=== PATIENT | male | born 1945 | race Caucasian/White ===

== ENCOUNTER → 2021-04-25 | Outpatient (CLI) | payer BC ==
[~2021-04-25] MED LIST: BUPROPION HCL100 MG PO; COREG25 M1 PO; HYDROCHLOROTHIA25 M1 PO; NICOTINE PATCH1 EAC3 TRANSDERM
[2021-04-25 09:11] LABS: URINE BILIRUBIN NEGATIVE (Negative); URINE BLOOD TRACE (Negative); URINE CLARITY CLEAR; URINE COLOR YELLOW; URINE GLUCOSE-RANDOM* NEGATIVE (Negative); URINE KETONES NEGATIVE (Negative); URINE LEUKOCYTES-REFLEX NEGATIVE (Negative); URINE NITRITE-REFLEX NEGATIVE (Negative); URINE PROTEIN (DIPSTICK) NEGATIVE (Negative); URINE SPECIFIC GRAVITY 1.015 (1.005-1.035)
[2021-04-25 09:17] LABS: HEMATOCRIT 43.5 % (42.0-52.0); HEMOGLOBIN 15.2 gm/dL (14.0-18.0); MCV 117.4 fL (80.0-100.0); RBC 3.7 mil/uL (4.50-6.00); RDW 14.1 % (10.5-14.5); WBC 4.8 thou/uL (4.0-11.0)
[2021-04-25 09:22] LABS: ALBUMIN 3.4 g/dL (3.4-5.0); CALCIUM 8.6 mg/dL (8.5-10.1); POTASSIUM 3.7 mmol/L (3.5-5.1)
[2021-04-25 09:28] LABS: INR 0.94; PROTIME 10.3 Seconds (10.5-12.1)
--- NOTE | 2021-04-25 10:54 | EKG ---
[address] [address] ELECTROCARDIOGRAM REPORT Name: MELIZA GOETZ [facility] #: [facility] [id number] Admission: 04/25/21 Attend Phys: Lorenzo Baltazar MD Discharge: Date of : 47 Report #: [id number] [facility] Test Date: 2021-04-25 Test Time: 09:07:09 Pat Name: MELIZA GOETZ Department: Room: Gender: Respiratory Clinician: KIRAN BEAUCHAMP : 1945 Requested By: Lorenzo Baltazar Order Number: [id number] : Tho Olivas Measurements Intervals [place] Rate: 57 P: 55 MT: 161 QRS: 0 QRSD: 146 T: 36 QT: 500 QTc: 487 Interpretive Statements Sinus rhythm Atrial premature complex Right bundle branch block No previous ECG available for comparison Electronically Signed On 04-25-2021 10:53:54 CDT by Tho Olivas [email or web address] <ELECTRONICALLY SIGNED> By: Tho Olivas MD, [facility] 04/25/21 1053 0907 6 Tho Olivas MD, FACC /EPI
== END ==
LOC: PAC 05:50
PROVIDERS: ATTEND Orthopaedic Surgery
DX: Z01.818 Encounter for other preprocedural examination (principal); M16.12 Unilateral primary osteoarthritis, left hip; I45.10 Unspecified right bundle-branch block

== ENCOUNTER 2021-05-01 07:20 | Observation (INO) | payer BC ==
[~2021-05-01] VITALS: Ht 180.3 cm; Wt 75.3 kg
[2021-05-01 09:02] VITALS: BP 184/82
[2021-05-01 20:05] VITALS: BP 150/95
[2021-05-01 23:38] VITALS: BP 137/74
--- NOTE | 2021-05-02 03:30 | NUR ---
PT ARRIVED FROM SX AT 1845 A&OX4 ADIMMISION DONE AND PT ORIENTED TO THE UNIT. RT HIP DRESSING C/D/I. ICE BAG IN PLACE. PT C/O NAUSEA DURING SHIFT CHANGED BUT FLET BETTER AFTERWARDS. DENIES NEED FOR PAIN OR NAUSEA MEDICATION. IV INTACT AND FLUIDS INFUSING. URINAL BY BEDSIDE. TEDHOSE ON BLE AND SCD'S IN PLACE WILL CONT TO MONITOR TILL EOS.
[2021-05-02 08:00] VITALS: BP 123/60
--- NOTE | 2021-05-02 09:40 | NUR ---
Chart review. Visited with tiny and his son gil. He was just got finished working with OT. DME needs( fww, toilet riser, and shower chair) for dc education from OT provided. FWW will be delivered by provider plus today. He lives at home alone, no longer drives. manage own medication. 12 step in home. health about 10 years ago after cancer. Outpatient therapy set up with [facility] in [place] set up for 1st visit tomorrow, if he stays will cancel tomorrow visit per son gil. DCP fww and outpt therapy.
[2021-05-02] MEDS ORDERED: HYDROCODON-ACE1 EAC7 PO (11:53)
[2021-05-02] MEDS ORDERED: TRI-BUFFERED A325 M1 PO (11:53)
--- NOTE | 2021-05-02 11:56 | O ---
[facility] [place] [place] [place] [address] OPERATIVE REPORT Name: MELIZA GOETZ BRIMLEY Room #: 440-P [facility] MAshutosh#: [id number] Admission: 05/01/21 Attend Phys: Lorenzo Baltazar MD Discharge: Date of : 47 Report #: [id number] THIS REPORT FOR: cc: Bria Perry MD,Bria Baltazar,Lorenzo Braswell MD ~ DATE OF SERVICE: 05/01/2021 PREOPERATIVE DIAGNOSIS: Right hip stage IV avascular necrosis. POSTOPERATIVE DIAGNOSIS: Right hip stage IV avascular necrosis. PROCEDURE: Right total hip arthroplasty. SURGEON: Lorenzo Baltazar MD. GRADUATE RESEARCH ASSISTANT: Jasmyn Carney PA-C. INDICATION FOR GRADUATE RESEARCH ASSISTANT: Throughout the case, extensive retraction, manipulation of the hip including dislocation and reduction was required. This was afforded to me by my sales operations assistant. ANESTHESIA: LMA. IMPLANTS: A Villalta and Nephew size 14 high offset Synergy press-fit stem, a size 52 R3 acetabular cup with 2 acetabular screws, a size 36+4 cobalt chrome head. ESTIMATED BLOOD LOSS: 150 mL COMPLICATIONS: None. SPECIMENS: None. CONDITION UPON LEAVING THE OR: Stable. INDICATIONS FOR PROCEDURE: The patient is a 76-year-old gentleman with stage IV right hip avascular necrosis. He had failed conservative measures for this and after discussion with him, he elected for right total hip arthroplasty. DESCRIPTION OF PROCEDURE: Risks, benefits, alternatives, complications were discussed in detail with the patient including but not limited to risk of anesthesia, risk of damage to nerves, arteries, blood vessels, risk for infection, bleeding, risk for continued hip pain, leg length discrepancy, instability and need for reoperation. Informed consent was obtained from the patient. Right hip was appropriately marked in the preoperative holding area. IV Ancef was given for preoperative antibiotics. He was brought to the [facility] [address] [place] [address] OPERATIVE REPORT Name: MELIZA GOTEZ RAY Room #: 440-P [facility] Thomas Gonzalez#: [id number] Admission: 05/01/21 Attend Phys: Lorenzo Baltazar MD Discharge: Date of : 47 Report #: [id number] operating room and placed in the supine position on the operating room table. LMA anesthesia was induced without complication. He was placed in the left lateral decubitus position with the right hip uppermost. Right hip and lower extremity were prepped and draped in normal sterile fashion. Timeout was performed, properly identifying the patient, procedure as well as the instrumentation and implants. All in the operating room were in agreement. Standard posterior approach to the hip was made with 10 blade through the skin. Dissection was taken down to the fascia with Bovie cautery and Liz elevator was used to clean the fascia. Fresh 10 blade was used to make a fascial incision. This was taken proximally and distally with curved Diaz scissors. Charnley retractor was placed. Trochanteric bursa was taken down with Bovie cautery. Piriformis tendon was identified, tagged and taken down with Bovie. Short external rotators were also taken down with Bovie cautery. Capsulotomy was made and capsule ends were tagged for later repair. Hip was dislocated and there was extensive avascular necrosis of the femoral head with collapse of the femoral head. Femoral neck cut was made 1 cm proximal to the lesser trochanter based on preoperative templating and the femoral head was removed. Deep acetabular retractors were placed. Labrum was removed sharply. Pulvinar was removed with Bovie cautery. Acetabulum was then sequentially reamed up to a size 52, at which point there was excellent bleeding cancellous bone. A size 51 trial cup was placed, found to have a good fit. Final size 52 R3 acetabular cup was placed and seated. One acetabular screw was placed for backup fixation and a polyethylene liner for a size 36 head was placed. Attention was turned to the femur. This was reamed and broached up to a size 14, at which point the size 14 broach was stable, and was trialed with a high offset neck and a 36+0 head. Hip was reduced, taken through range of motion, found to be stable, found to be somewhat short on the right compared to left. It was felt we can make up for this with the final implant. The hip was dislocated. Broach was removed. The final size 14 high offset Synergy cemented stem was cemented in place using standard cementation techniques. After the cement cured, this was trialed with 36+4 head. Hip was reduced, taken through range of motion, found to be stable, found to have equal leg lengths. Hip was dislocated one last time. A final size 36+4 cobalt chrome head was placed. Hip was reduced, taken through range of motion, found to be stable, found to have equal leg lengths. Wound was thoroughly irrigated with normal saline. A periarticular injection consisting of morphine, ropivacaine, epinephrine, Toradol was placed around the hip joint capsule. Then, 1 gram of vancomycin was placed deep in the joint. The capsule and piriformis were repaired with 0 FiberWire. Fascia was closed with 0 Vicryl. Skin was closed with 2-0 Vicryl, skin staple and a KECIA dressing was applied. The patient tolerated this procedure well and went to recovery room under care of Anesthesia postoperatively. <ELECTRONICALLY SIGNED> By: Lorenzo Baltazar MD 05/02/21 1156 1125 1148 Lorenzo Baltazar MD /nt
[2021-05-02 12:34] VITALS: BP 137/74
== END 2021-05-02 14:21 | disposition home or self-care (01) ==
LOC: PRE → OR 07:20 → PRE 07:44 → TBA 08:42 → PRE 09:20 → TBA 11:42 → PRE 11:49 → TBA 12:06 → PRE 12:29 → EDSTATUS 15:29 → PRE 15:41 → OR 16:12 → PRE 16:28 → 4S 18:41 → OR 18:42 → 4S 05-02 14:21
PROVIDERS: ADMIT Orthopaedic Surgery; ATTEND Orthopaedic Surgery
DX: M87.851 Other osteonecrosis, right femur (principal); M16.12 Unilateral primary osteoarthritis, left hip; E78.5 Hyperlipidemia, unspecified; F17.210 Nicotine dependence, cigarettes, uncomplicated; Z79.899 Other long term (current) drug therapy; Z23 Encounter for immunization; Z20.822 Contact with and (suspected) exposure to COVID-19
CPT/HCPCS: 10102; 50101; 50382; 50414; 51057; 51130; 51225; 51226; 51412; 53000; 53078; 53367; 54118; 56524; 56527; 56528; 56530; 57095; 57103; 57978; 62110; 62900; 70005

== ENCOUNTER 2021-05-03 07:29 | Observation (INO) | payer BC ==
[~2021-05-03] VITALS: Ht 180.3 cm; Wt 68.0 kg
[~2021-05-03 07:29] MED LIST changes: +HYDROCODON-ACE1 EAC7 PO; +TRI-BUFFERED A325 M1 PO
[2021-05-03 07:33] VITALS: BP 146/85
[2021-05-03 09:42] LABS: ABSOLUTE NEUTROPHILS 4.3 thou/uL (1.4-8.2); BASOPHILS 0.5 % (0.0-2.0); EOSINOPHILS 0.3 % (0.0-3.0); HEMATOCRIT 39.3 % (42.0-52.0); HEMOGLOBIN 13.6 gm/dL (14.0-18.0); LYMPHOCYTES 13.3 % (24.0-44.0); MCH 40.1 pg (26.0-34.0); MCHC 34.6 g/dL (28.0-37.0); MCV 116.1 fL (80.0-100.0); MONOCYTES 7.9 % (1.0-8.0); PLATELET COUNT 228 thou/uL (150-400); RBC 3.38 mil/uL (4.50-6.00); RDW 13.8 % (10.5-14.5); WBC 5.6 thou/uL (4.0-11.0)
[2021-05-03 09:44] LABS: CALCIUM 8.2 mg/dL (8.5-10.1); CREATININE 0.8 mg/dL (0.7-1.3)
[2021-05-03 09:45] LABS: POTASSIUM 3.9 mmol/L (3.5-5.1)
[2021-05-03 09:50] LABS: ALBUMIN 2.8 g/dL (3.4-5.0); TOTAL BILIRUBIN 0.8 mg/dL (0.2-1.0); TOTAL PROTEIN 6.1 g/dL (6.4-8.2)
[2021-05-03 10:30] LABS: MACROCYTES 2+; PLATELET ESTIMATE NORMAL
[2021-05-03 11:00] VITALS: BP 144/74
[2021-05-03 15:17] VITALS: BP 149/84
[2021-05-03 16:33] VITALS: BP 152/82
--- NOTE | 2021-05-03 16:43 | NUR ---
ASSUMED PT CARE FROM PACU AT 1500. PT IS ALERT & ORIENTED X4. PT HAS IV SITE ON R WRIST 20 GAUGE RUNNING D5 1/2 NS @ 100ML/HR. PT HAD OPEN REDUCTION DISLOCATION SURGERY ON R HIP TODAY. FINISHED ADMISSION TODAY. PT HAS KECIA DRESSING ON R HIP, ABDUCTOR PILLOW BETWEEN LEGS, MATILDA HOSE ON L KNEE HIGH, AND SCD. PT IS ON ROOM AIR. PT RATED PAIN 2/10 ON R HIP. PT HAS COLOSTOMY. PT SON WAS AT THE BEDSIDE. PT ON THE BED WATCHING TV, BED ON THE LOWEST POSITION, SIDE RAILS UP, CALL LIGHT WITHIN REACH. FOLLOW POC.
--- NOTE | 2021-05-03 17:07 | NUR ---
Chart reviewed and pt known to cm from discharge home with outpt therapy and FWW yesterday. Pt is s/p MOISES on 05/01;however after he went home yesterday he was up to the bathroom without his walker and fell. He is s/p open reduction today. Consult rec'd for hh vs snf referrals. Therapy evals are pending. Will need to check ins benefits if snf or rehab needed as pt has a [employer] plan primary and possible medicare secondary. The pt lives at home with his son and has 12 steps into the home. He is normally indep with gait, adl's, and med mngt. His pcp is Dr. Bria Perry. Will visit with the pt once therapy imput rec'd.
[2021-05-03 19:38] VITALS: BP 120/68
--- NOTE | 2021-05-04 02:33 | NUR ---
PT IS A/O X4 AND IS ON BEDREST. PT IS COOPERATIVE BUT IRRITABLE WITH ALL CARES. VSS. AFEBRILE. DENIES C/O PAIN OR DISCOMFORT. MEDICATIONS GIVEN PER MAR. ABDUCTOR PILLOW IN PLACE. DRSG TO HIP IS C/D/I. PT VOIDS PER URINAL AND HAS A COLOSTOMY IN PLACE. MAINTANCE FLUID INFUSING AT PRESCRIBED RATE. FALL PRECAUTIONS IN PLACE, CALL LIGHT IS WITHIN REACH. PT CALLS OUT APPROPRIATELY FOR ASSISTANCE.
[2021-05-04 05:23] VITALS: BP 123/72
--- NOTE | 2021-05-04 07:22 | EKG ---
[address] [address] ELECTROCARDIOGRAM REPORT Name: MELIZA GOETZ Room #: 439-P [facility] M.R.#: [id number] Admission: 05/03/21 Attend Phys: Lorenzo Baltazar MD Discharge: Date of : 47 Report #: [id number] [facility] ED Test Date: 2021-05-03 Test Time: 09:53:51 Pat Name: MELIZA GOETZ Department: Room: 439 Gender: M Certified Professional Controller: KHURRAM : 1945 Requested By: Justin Baxter Order Number: [id number] MD: Tho Olivas Measurements Intervals [place] Rate: 145 P: 89 NE: 58 QRS: 0 QRSD: 206 T: 5 QT: 442 QTc: 687 Interpretive Statements Sinus tachycardia Right bundle branch block Compared to ECG 04/25/2021 09:07:09 Sinus rhythm no longer present Atrial premature complex(es) no longer present Electronically Signed On 05-04-2021 7:22:31 CDT by Tho Olivas [email or web address] <ELECTRONICALLY SIGNED> By: Tho Olivas MD, [facility] 05/04/21721 Tho Olivas MD, [facility] /EPI
[2021-05-04 08:18] VITALS: BP 146/76
[2021-05-04 09:50] VITALS: BP 146/76
--- NOTE | 2021-05-04 15:01 | NUR ---
Pt seen by therapy and ortho this am. He was cleared for dc to home with previous plans of starting outpt [facility]arpy at [facility]. No cm interventions. Pt has rwalker in place.
--- NOTE | 2021-05-09 09:39 | O ---
[facility] [place] [address] OPERATIVE REPORT Name: MELIZA GOETZ Room #: 439-P [facility] Thomas Gonzalez#: [id number] Admission: 05/03/21 Attend Phys: Lorenzo Baltazar MD Discharge: 05/04/21 Date of : 47 Report #: [id number] THIS REPORT FOR: cc: Bria Perry MD,Bria Baltazar,Lorenzo Braswell MD ~ DATE OF SERVICE: 05/03/2021 PREOPERATIVE DIAGNOSIS: Right total hip arthroplasty dislocation. POSTOPERATIVE DIAGNOSIS: Right total hip arthroplasty dislocation. PROCEDURE: Open reduction, right total hip arthroplasty. SURGEON: Lorenzo Baltazar MD. EDUCATION DEPARTMENT REGISTRAR: Jasmyn Carney PA-C. ANESTHESIA: LMA. COMPLICATIONS: None. SPECIMENS: None. ESTIMATED BLOOD LOSS: 10 mL CONDITION UPON LEAVING THE OR: Stable. INDICATIONS FOR PROCEDURE: The patient is a 76-year-old gentleman who is 2 days out from a right total hip arthroplasty. He was discharged home from the hospital yesterday and unfortunately during the night, he got up to go to the bathroom and was ambulating without his walker and fell and had immediate hip pain. He came to the Emergency Room and was found to have a dislocation of his right total hip arthroplasty. After discussion with him and his family, he elected for closed versus open reduction of his right total hip arthroplasty. DESCRIPTION OF PROCEDURE: Risks, benefits, alternatives, complications were discussed in detail with the patient and the patient's family including but not limited to risk of anesthesia, risk of damage to nerves, arteries, blood vessels, risk of failure of closed reduction and need for open reduction. Informed consent was obtained from the patient. The right hip was appropriately marked in the preoperative holding area. He was brought to the operating room and placed in the supine position on the operating room table. LMA anesthesia was induced without complication. Multiple attempts at closed reduction were performed and were unsuccessful and verified to be unsuccessful under fluoroscopic imaging. It was decided at this point that an open reduction would [address] [address] OPERATIVE REPORT Name: MELIZA GOETZ Room #: 439-P [facility] Thomas Gonzalez#: [id number] Admission: 05/03/21 Attend Phys: Lorenzo Baltazar MD Discharge: 05/04/21 Date of : 47 Report #: [id number] be required. Previous edmund were removed from his incision. Incision was opened with a 10 blade. Fascial closure was opened with a 10 blade and there was an obvious posterior superior dislocation of the femoral head prosthesis. There was a large amount of hematoma within the acetabular polyethylene. This was evacuated and the hip was then reduced manually and shown to have good stability and equal leg lengths. The wound was thoroughly irrigated with normal saline. Capsule was repaired with 0 FiberWire. Fascia was closed with 0 Vicryl. Skin was closed with 2-0 Vicryl, skin staple and a KECIA dressing was applied. Abduction pillow was applied. The patient tolerated this procedure well and went to the recovery room under care of anesthesia postoperatively. <ELECTRONICALLY SIGNED> By: Lorenzo Baltazar MD 05/09/21 0939 1256 1320 Lorenzo Baltazar MD /nt
== END 2021-05-04 10:33 | disposition home or self-care (01) ==
LOC: ER 07:29 → EROBS 11:07 → 4S 11:07 → TBA 11:08 → 4S 14:36
PROVIDERS: Emergency Medicine; ADMIT Orthopaedic Surgery; ATTEND Orthopaedic Surgery
DX: S73.004A Unspecified dislocation of right hip, initial encounter (principal); Z20.822 Contact with and (suspected) exposure to COVID-19; F17.200 Nicotine dependence, unspecified, uncomplicated; X58.XXXA Exposure to other specified factors, initial encounter; Y93.89 Activity, other specified; Y92.89 Other specified places as the place of occurrence of the external cause; Y99.8 Other external cause status; Z85.038 Personal history of other malignant neoplasm of large intestine; Z98.890 Other specified postprocedural states
CPT/HCPCS: 10195; 50010; 50101; 50382; 50414; 51412; 53078; 56524; 56528; 57095; 57103; 57116; 62110; 62900; 70005

== ENCOUNTER 2021-06-05 19:11 | Emergency (ER) | payer BC ==
[~2021-06-05] VITALS: Ht 180.3 cm; Wt 68.0 kg
[2021-06-05 22:37] VITALS: BP 141/82
== END 2021-06-05 22:41 | disposition home or self-care (01) ==
LOC: ER 19:11
DX: S73.014A Posterior dislocation of right hip, initial encounter (principal); W18.11XA Fall from or off toilet without subsequent striking against object, initial encounter; Y93.89 Activity, other specified; Y92.89 Other specified places as the place of occurrence of the external cause; Y99.8 Other external cause status

== ENCOUNTER 2021-06-11 12:19 | Inpatient (IN) | payer OTHER ==
[~2021-06-11] VITALS: Ht 180.3 cm; Wt 73.9 kg
--- NOTE | ~2021-06-11 | O ---
[facility] [place] [address] OPERATIVE REPORT Name: MELIZA GOETZ Room #: 437-P [facility] M.R.#: [id number] Admission: 06/11/21 Attend Phys: Janell Bañuelos Discharge: Date of : 47 Report #: [id number] THIS REPORT FOR: cc: Bria Perry MD, Pamela MD Abraham,Lorenzo Braswell MD ~ DATE OF SERVICE: 06/12/2021 PREOPERATIVE DIAGNOSIS: Recurrent right hip dislocation. POSTOPERATIVE DIAGNOSES: 1. Recurrent right hip dislocation. 2. Loose unstable femoral stem, right total hip. PROCEDURE: Revision right total hip arthroplasty including the stem as well as the head and acetabular liner. SURGEON: Lorenzo Baltazar MD BREAD JOCKEY: None. ANESTHESIA: LMA. SPECIMENS: None. IMPLANTS: Villalta and Nephew size 15 high offset Synergy cemented stem with a size 40 x 52 Oxinium liner, a size 22 x 40 polyethylene insert with a size 22+8 Oxinium head. ESTIMATED BLOOD LOSS: 200 mL. COMPLICATIONS: None. SPECIMENS: None. CONDITION UPON LEAVING THE OR: Stable. INDICATIONS FOR PROCEDURE: The patient is a 76-year-old gentleman who is about 6 weeks out from a right total hip arthroplasty. He has had now 3 dislocations of his right total hip arthroplasty, presented to the Emergency Room with again a right posterior superior hip dislocation. This was not reducible in the Emergency Room and after discussion with he and his family, he elected for closed reduction versus open reduction and revision right total hip arthroplasty if necessary. DESCRIPTION OF PROCEDURE: Risks, benefits, alternatives, complications were [facility] [address] [place] [address] OPERATIVE REPORT Name: MELIZA GOETZ Room #: 437-P ADM IN M.R.#: [id number] Admission: 06/11/21 Attend Phys: Janell Bañuelos Discharge: Date of : 47 Report #: [id number] discussed in detail with the patient including but not limited to risk of anesthesia, risk of damage to nerves, arteries, blood vessels, risk for infection, bleeding, risk for continued hip pain, leg length discrepancy, instability, infection, need for reoperation. Informed consent was obtained from the patient. The right hip was appropriately marked in the preoperative holding area. IV Ancef was given for preoperative antibiotics. He was brought to the operating room and placed in the supine position on the operating room table. LMA anesthesia was induced without complication. He was then placed in the left lateral decubitus position with the right hip uppermost. Right hip and lower extremity were prepped and draped in normal sterile fashion. Timeout was performed properly identifying the patient and procedure as well as the instrumentation and implants. All in the operating room were in agreement. The previous scar was used. This was opened with a 10 blade. Dissection was taken down to the fascia with Bovie cautery and Liz elevator was used to clean the fascia. Fresh fascial incision was made. Upon entering the subfascial space, there was a large seroma that was evacuated. There was obvious dislocation of the femoral head and component. The femoral head was removed and the stem was then inspected and it was noted to be unstable in the cement mantle. This was then backed out with a slap hammer and it came out rather easily with no cement interdigitation onto the stem. At this point, it was felt that that was contributing to his posterior dislocation and the cement mantle was removed with a combination of flexible and rigid osteotomes. After this, the femur was reamed up to a size 15 and then broached up to a size 15. It was also decided given his recurrent dislocation, we would use a dual mobility construct for his femoral head. The acetabular liner was removed from the acetabular shell and a trial acetabular liner for dual mobility head was placed. This was then trialed with a size 40+8 head. Hip was reduced, taken through range of motion, found to be stable, found to be long on the right compared to the left, but it was felt that this was acceptable given his recurrent dislocation status and the need for stability of the joint. The hip was dislocated. The broach was removed and final size 15 high offset Synergy cemented stem was cemented in place using standard cementation techniques. After the cement cured, this was trialed with a 40+4 and then a 40+8 head. The 40+8 head demonstrated the best stability with increased leg length on the right compared to left, but again this was acceptable given his recurrent dislocation pattern. Hip was dislocated. The final Oxinium liner was placed in the acetabular shell. The size 22 x 40 insert with a 22+8 Oxinium head was placed for the dual mobility femoral head and the hip was reduced, taken through range of motion, found to be stable. The hip was thoroughly irrigated with normal saline. A gram of vancomycin was placed deep in the joint. The fascia was closed with 0 Vicryl. Skin was closed with 2-0 Vicryl, skin staple and a KECIA dressing was applied. The patient tolerated this [facility] [address] [place] [address] OPERATIVE REPORT Name: MELIZA GOETZ Room #: 437-P [facility] IN M.R.#: [id number] Admission: 06/11/21 Attend Phys: Janell Bañuelos Discharge: Date of : 47 Report #: [id number] procedure well and went to the recovery room under the care of anesthesia postoperatively. By: 1402 1515 Lorenzo Baltazar MD /nt
[2021-06-11 12:20] VITALS: BP 145/72
[2021-06-11 14:22] LABS: HEMATOCRIT 37.5 % (42.0-52.0); HEMOGLOBIN 12.9 gm/dL (14.0-18.0); MCH 39.5 pg (26.0-34.0); MCHC 34.4 g/dL (28.0-37.0); RBC 3.26 mil/uL (4.50-6.00); RDW 15.2 % (10.5-14.5); WBC 4.9 thou/uL (4.0-11.0)
[2021-06-11 14:38] LABS: CALCIUM 8.6 mg/dL (8.5-10.1); CREATININE 0.8 mg/dL (0.7-1.3); POTASSIUM 3.3 mmol/L (3.5-5.1)
[2021-06-11 14:45] LABS: ALBUMIN 2.7 g/dL (3.4-5.0); TOTAL BILIRUBIN 0.5 mg/dL (0.2-1.0); TOTAL PROTEIN 5.9 g/dL (6.4-8.2)
[2021-06-11 15:12] VITALS: BP 163/81
[2021-06-11 15:22] VITALS: BP 145/73
--- NOTE | 2021-06-11 15:56 | NUR ---
PT BROUGHT UP FROM ER AT 1540 THIS AFTERNOON. PT HAS DISLOCATED RT HIP AND WILL NOT STAY IN PLACE. PT WILL BE HAVING SURGERY TOMORROW AND WILL BE NPO AFTER MIDNIGHT. PT IS A/OX4 AND IS NOT COMPLAINING OF ANY PAIN AT THIS TIME. RN WILL BE ASSESSING PT AND PUTTING TOGETHER PLAN OF CARE. ORDERS HAVE BEEN ACKNOWLEDGED AND DIET ORDERS HAVE BEEN PLACED. CALL LIGHT AND OTHER NEEDS ARE IN REACH. FALL PRECAUTIONS ARE IN PLACE, MEDS AND TX GIVEN NEEDED AND SCHEDULED. WILL MONITOR AND NOTE ANY CHANGES.
[2021-06-11 16:29] VITALS: BP 151/80
[2021-06-11 19:19] VITALS: BP 110/62
--- NOTE | 2021-06-12 03:42 | NUR ---
ASSUMED CARE OF PT AT 1900. BEDSIDE REPORT RECIEVED. TOMI ASSESSMENT COMPLETE. PT C/O 11/28 HIP PAIN. MEDS GIVEN PER MAR, PAIN MEDS GIVEN ACCORINGLY. PT ON BEDREST AND TO BE NPO AT MIDNIGHT FOR SURGERY IN THE AM, PROVIDED EDUCATION, PT VERBALIZED UNDERSTANDING. IVF INFUSING PER SEP. HOURLY ROUNDING CONTINUING, CALL LIGHT IN REACH
[2021-06-12 04:30] VITALS: BP 142/68
[2021-06-12 05:37] LABS: ALBUMIN 2.6 g/dL (3.4-5.0); CALCIUM 8.6 mg/dL (8.5-10.1); CREATININE 0.7 mg/dL (0.7-1.3); POTASSIUM 3.4 mmol/L (3.5-5.1)
--- NOTE | 2021-06-12 07:40 | EKG ---
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 : 1945 Requested By: Carleen Bryson Order Number: [id number] MD: Tho Olivas Measurements Intervals [place] Rate: 74 P: 85 [place]: 161 QRS: 27 QRSD: 138 T: 55 QT: 454 QTc: 504 Interpretive Statements Sinus rhythm Atrial premature complex Right bundle branch block Compared to ECG 05/03/2021 09:53:51 Atrial premature complex(es) now present Sinus tachycardia no longer present Electronically Signed On 06-12-2021 7:39:44 PULP SCREEN OPERATOR by Tho Olivas [email or web address] <ELECTRONICALLY SIGNED> By: Tho Olivas MD, [facility] 06/12/21 0739 05 05 Tho Olivas MD, FACC /EPI
--- NOTE | 2021-06-12 09:34 | NUR ---
76-year-old male with past medical history of colon cancer with colostomy, hypertension, right total hip replacement on April 2021 had 2 dislocations since presenting to the ED complaining of right hip dislocation, He felt a pop in his hip. Hx of falls at home. PCP Dr Bria Perry Chart review. He out of his room for surgery. Independent prior to past hospital visits since apr 2021. Lives at home with his son. 12 steps to enter home. Fww. Manage own medications. Declined skilled rehab in the past, went to [facility] outpatient rehab in the past.
[2021-06-12 15:32] VITALS: BP 145/75
[2021-06-12 15:50] VITALS: BP 139/71
[2021-06-12 17:06] VITALS: BP 145/72
--- NOTE | 2021-06-12 18:11 | NUR ---
Pt A & O x4. Pt VS stable. Pt had surgery this shift. Pt currently refusing post op IV fluids. Pt had nausea and received medication. Pt is able to make needs known
[2021-06-12 19:19] VITALS: BP 143/75
--- NOTE | 2021-06-13 02:17 | NUR ---
ASSESSED AT START OF SHIFT. PT RESTING IN BED. IV INTACT, FLUIDS AND ABX INFUSING. URINAL AT BEDSIDE. RT HIP KECIA DRESSING INTACT. FALL PREC IN PLACE. PT ANTICIPATING DC TOMORROW. WILL CONT TO MONITOR TILL EOS.
[2021-06-13 05:38] LABS: HEMATOCRIT 33.3 % (42.0-52.0); HEMOGLOBIN 11.5 gm/dL (14.0-18.0); MCH 39.4 pg (26.0-34.0); MCHC 34.6 g/dL (28.0-37.0); MCV 113.8 fL (80.0-100.0); RBC 2.93 mil/uL (4.50-6.00); RDW 14.6 % (10.5-14.5); WBC 6.9 thou/uL (4.0-11.0)
[2021-06-13 08:41] VITALS: BP 113/67
--- NOTE | 2021-06-13 10:02 | NUR ---
ASSUMED PT CARE THIS AM. PT IS ALERT & ORIENTED X4. PT HAS IV SITE ON RAC SALINE LOCKED. PT IS ON ROOM AIR. EDUCATED AND REITERATE PT ABOUT CALLING FOR ASSISTANCE TO PREVENT FALLS. GIVEN PAIN MEDICATION PRIOR WORKING WITH PHYSICAL THERAPY THIS AM. PER PHYSICAL THERAPY OK AND SAFE FOR DC. AWAITING FOR DC ORDERS. WILL CONTINUE TO MONITOR PT. FOLLOW POC.
[2021-06-13] MEDS ORDERED: COLACE 100 MG100 MG PO (10:48)
--- NOTE | 2021-06-13 11:00 | NUR ---
Juan Jose notified that hayley changed his mind and is ok with home health. Hayley was working with physical therapy this am. Juan Jose spoke with son gil while here , he agrees with dcp of home with home health. Referral faxed to steph at home health. Will cont following as needed.
[2021-06-13 11:04] VITALS: BP 113/67
[2021-06-13 15:08] VITALS: BP 113/67
== END 2021-06-13 13:31 | disposition home health service (06) | DRG 480 ==
LOC: ER 12:19 → 4S 15:01 → EROBS 15:01 → 4S 15:22
PROVIDERS: Nurse Practitioner Family; Orthopaedic Surgery; ADMIT Hospitalist; ATTEND Hospitalist
PROC: 0SW909Z Revision of Liner in Right Hip Joint, Open Approach (ICD-10-PCS; principal; 2021-06-12)
DX: T84.030A Mechanical loosening of internal right hip prosthetic joint, initial encounter (principal); E43 Unspecified severe protein-calorie malnutrition; M24.451 Recurrent dislocation, right hip; E87.6 Hypokalemia; I10 Essential (primary) hypertension; Z96.641 Presence of right artificial hip joint; F17.210 Nicotine dependence, cigarettes, uncomplicated; Z20.822 Contact with and (suspected) exposure to COVID-19; Y83.8 Other surgical procedures as the cause of abnormal reaction of the patient, or of later complication, without mention of misadventure at the time of the procedure; Y92.89 Other specified places as the place of occurrence of the external cause; Z93.3 Colostomy status; Z85.038 Personal history of other malignant neoplasm of large intestine
CPT/HCPCS: 10195; 50010; 50101; 50382; 50414; 51057; 51130; 51225; 51226; 51412; 53078; 56524; 56528; 56530; 57095; 57103; 57116; 58138; 59079; 59080; 59081; 59082; 59083; 59084; 62110; 62900; 70005

== ENCOUNTER 2021-07-05 19:03 | Emergency (ER) | payer OTHER ==
[~2021-07-05] VITALS: Ht 180.3 cm; Wt 68.0 kg
[~2021-07-05 19:03] MED LIST changes: +COLACE 100 MG100 MG PO
[2021-07-05 22:40] VITALS: BP 142/76
== END 2021-07-05 22:50 | disposition home or self-care (01) ==
LOC: ER 19:03
DX: S73.004A Unspecified dislocation of right hip, initial encounter (principal); F17.210 Nicotine dependence, cigarettes, uncomplicated; I10 Essential (primary) hypertension; Z90.89 Acquired absence of other organs; Z85.038 Personal history of other malignant neoplasm of large intestine; X50.1XXA Overexertion from prolonged static or awkward postures, initial encounter; Y93.89 Activity, other specified; Y92.89 Other specified places as the place of occurrence of the external cause; Y99.9 Unspecified external cause status